=== PATIENT | female | born 1980 | race Caucasian/White ===

== ENCOUNTER 2018-10-18 22:29 | Emergency (ER) | payer BC ==
[2018-10-18 22:37] VITALS: TEMP 98.3
--- NOTE | 2018-10-18 22:56 | ED ---
Chest Pain HPI - General Chief Complaint: Chest Pain Stated Complaint: arm & neck pain, doesn't feel right Time Seen by Provider: 10/18/18 22:56 Source: patient, RN notes reviewed, old records reviewed Mode of arrival: ambulatory Limitations: no limitations - History of Present Illness Initial Comments: This is a 38-year-old female the ER for evaluation of some chest pain chest tightness, tingling that happened earlier in the day is been episodic for a few days now. No history of high blood pressure control diabetes. No recent travel history or sick contacts. A she also has left arm pain left neck pain and dizziness. No prior history of similar complaint no trauma. No fever cough or congestion MD Complaint: chest pain -: days(s) Onset: other (Episodic) Pain Location: substernal, left chest Pain Radiation: LUE Severity: mild Consistency: intermittent Improves With: nothing Worsens With: nothing Treatments Prior to Arrival: none - Related Data Home Medications Medication Instructions Recorded Confirmed Levothyroxine Sodium [Synthroid] 75 mcg PO DAILY 04/12/16 04/12/16 Loratadine [Claritin] 10 mg PO DAILY PRN 04/12/16 04/12/16 Previous Rx's Medication Instructions Recorded Meclizine [Antivert] 12.5 mg PO Q6H #20 tablet 04/12/16 Allergies Allergy/AdvReac Type Severity Reaction Status Date / Time No Known Allergies Allergy Verified 10/18/18 22:37 Review of Systems ROS Statement: Those systems with pertinent positive or pertinent negative responses have been documented in the HPI. ROS Other: All systems not noted in ROS Statement are negative. EKG Findings - EKG Comments: EKG Findings:: EKG shows normal sinus rhythm rate of 66, PA 136, QRS 80, QTC 448 Past Medical History Past Medical History: No Reported History, Thyroid Disorder History of Any Multi-Drug Resistant Organisms: None Reported Past Surgical History: Tonsillectomy Past Psychological History: No Psychological Hx Reported Smoking Status: Never smoker Past Alcohol Use History: Occasional Past Drug Use History: None Reported General Exam Limitations: no limitations General appearance: alert, in no apparent distress Head exam: Present: atraumatic, normocephalic, normal inspection Eye exam: Present: normal appearance, PERRL, EOMI. Absent: scleral icterus, conjunctival injection, periorbital swelling ENT exam: Present: normal exam, mucous membranes moist Neck exam: Present: normal inspection. Absent: tenderness, meningismus, lymphadenopathy Respiratory exam: Present: normal lung sounds bilaterally. Absent: respiratory distress, wheezes, rales, rhonchi, stridor Cardiovascular Exam: Present: regular rate, normal rhythm, normal heart sounds. Absent: systolic murmur, diastolic murmur, rubs, gallop, clicks GI/Abdominal exam: Present: soft, normal bowel sounds. Absent: distended, tenderness, guarding, rebound, rigid Extremities exam: Present: normal inspection, full ROM, normal capillary refill. Absent: tenderness, pedal edema, joint swelling, calf tenderness Back exam: Present: normal inspection Neurological exam: Present: alert, oriented X3, CN II-XII intact Psychiatric exam: Present: normal affect, normal mood Skin exam: Present: warm, dry, intact, normal color. Absent: rash Course Vital Signs 10/18/18 10/19/18 22:33 01:00 Temperature 98.3 F Pulse Rate 70 75 Respiratory 20 18 Rate Blood Pressure 120/80 104/72 O2 Sat by Pulse 100 99 Oximetry - Reevaluation(s) Reevaluation #1: Reviewed Patient is currently without chest pain Chest Pain MDM - MDM 38 female the ER for evaluation of atypical chest pain. Patient is x-rays labwork are normal here in the ER. No recent fevers for heart disease and patient can be discharged home Disposition Clinical Impression: Chest pain, Atypical chest pain Disposition: HOME SELF-CARE Condition: Good Instructions (If sedation given, give patient instructions): Chest Pain (ED) Is patient prescribed a controlled substance at d/c from ED?: No Referrals: Rancho Delong DO [Primary Care Provider] - 1-2 days
[2018-10-18 23:49] LABS: Basophils % (A) 0 %; Eosinophils # (A) 0.2 k/uL (0-0.7); Eosinophils % (A) 2 %; HCT 38.9 % (34.0-46.0); HGB 13.2 gm/dL (11.4-16.0); Lymphocytes # (A) 2.5 k/uL (1.0-4.8); Lymphocytes % (A) 37 %; MCH 29.2 pg (25.0-35.0); MCV 85.9 fL (80.0-100.0); Mean Platelet Volume 7.9; Monocytes # (A) 0.3 k/uL (0-1.0); Monocytes % (A) 4 %; Neutrophils # (A) 3.8 k/uL (1.3-7.7); Neutrophils % (A) 56 %; Platelet Count 198 k/uL (150-450); RBC 4.53 m/uL (3.80-5.40); RDW 12.8 % (11.5-15.5); WBC 6.7 k/uL (3.8-10.6)
[2018-10-18 23:58] LABS: ALT 11 U/L (9-52); AST 15 U/L (14-36); Albumin 4.2 g/dL (3.5-5.0); Alkaline Phosphatase 52 U/L (38-126); Anion Gap 8 mmol/L; Blood Urea Nitrogen 15 mg/dL (7-17); Calcium 9.1 mg/dL (8.4-10.2); Carbon Dioxide 24 mmol/L (22-30); Chloride 105 mmol/L (98-107); Glucose 92 mg/dL (74-99); Lipase 78 U/L (23-300); Magnesium 2.1 mg/dL (1.6-2.3); Potassium 3.9 mmol/L (3.5-5.1); Sodium 137 mmol/L (137-145); Total Bilirubin 0.3 mg/dL (0.2-1.3); Total Protein 6.9 g/dL (6.3-8.2)
[2018-10-19 00:02] LABS: D-Dimer <0.17 mg/L FEU (<0.60); Partial Thromboplastin Time 27.5 sec (22.0-30.0); Prothrombin Time 10.5 sec (9.0-12.0)
--- NOTE | 2018-10-19 00:06 | XR ---
EXAM: XR Chest, 2 Views CLINICAL HISTORY: ITS.REASON XR Reason: Chest Pain TECHNIQUE: Frontal and lateral views of the chest. COMPARISON: None FINDINGS: Hardware: None. Lungs/pleura: Normal. No focal consolidation. No pleural effusion or pneumothorax. Heart/mediastinum: Normal. No cardiomegaly. Soft tissues: Unremarkable. Bones: No acute fracture. Upper abdomen: Normal. IMPRESSION: No acute disease identified.
[2018-10-19 03:20] VITALS: BP 104/72; PULSE 75; RESP 18
== END 2018-10-19 01:00 | disposition home or self-care (01) ==
LOC: EC 22:29
DX: R07.89 Other chest pain (principal); M79.602 Pain in left arm; M54.2 Cervicalgia; R42 Dizziness and giddiness; E07.9 Disorder of thyroid, unspecified; Z79.890 Hormone replacement therapy
CPT/HCPCS: 36415; 71046; 80053; 83690; 83735; 83880; 84484; 85025; 85379; 85610; 85730; 93005; 99285

== ENCOUNTER → 2023-01-17 | Outpatient (CLI) | payer BC ==
--- NOTE | 2023-01-18 13:44 | MM ---
Reason for Exam: Screening (asymptomatic). Baseline mammogram. Patient History: Menarche at age 15. First Full-Term at age 27. Patient has history of breast feeding. Patient used Hormonal Contraceptives for 7 years. Last menstrual period: 01/06/2023 Risk Values: Tyra 5 year model risk: 0.6%. NCI Lifetime model risk: 10.1%. Prior Study Comparison: Patient's first Mammogram. Tissue Density: The breast tissue is heterogeneously dense. This may lower the sensitivity of mammography. Findings: Analyzed By CAD. There is no suspicious group of microcalcifications or new suspicious mass in either breast. Overall Assessment: Negative, BI-RAD 1 Management: Screening Mammogram of both breasts in 1 year. . Patient should continue monthly self-breast exams. A clinical breast exam by your physician is recommended on an annual basis. This exam should not preclude additional follow-up of suspicious palpable abnormalities. Note on Tyra scores and lifetime risk: 1. A Tyra score greater than 3% is considered moderate risk. If this is the case, consider specialist referral to assess eligibility for a risk reducing agent. 2. If overall lifetime risk for the development of breast cancer is 20% or higher, the patient may qualify for future screening with alternating mammogram and breast MRI. Electronically signed and approved by: Luis Zuniga M.D. Radiologis
== END | disposition home or self-care (01) ==
LOC: RADMAMWWP 16:05
PROVIDERS: ATTEND Obstetrics & Gynecology
DX: Z12.31 Encounter for screening mammogram for malignant neoplasm of breast (principal)
CPT/HCPCS: 77063; 77067

== ENCOUNTER → 2024-01-08 | Outpatient (CLI) | payer BC | END | disposition home or self-care (01) | LOC: LABPRL 17:45 | PROVIDERS: ATTEND Family Medicine | CPT/HCPCS: 80053; 80061; 83036; 84439; 84443; 85025 ==

== ENCOUNTER 2024-02-05 08:00 | Day surgery (SDC) | payer BC ==
[2024-02-02 11:43] VITALS: BMI 24.3
[2024-02-05 08:56] VITALS: TEMP 98
[2024-02-05] MEDS: IV FLUID CONTINUATION 1,000 ML IV ONE (09:02)
[2024-02-05] MEDS: LACTATED RINGERS 1,000 ML IV SCH (09:09)
[2024-02-05] MEDS ORDERED: PROPOFOL 10 MG/ML 20 ML VIAL IV ONE (09:28)
[2024-02-05] MEDS ORDERED: LIDOCAINE 1% INJ 10MG/ML (20 ML MDV) ONE (09:28)
[2024-02-05 10:03] VITALS: RESP 16
[2024-02-05 10:15] VITALS: BP 104/70; PULSE 55
--- NOTE | 2024-02-05 15:37 | P.OP ---
Date of Procedure: 02/05/24 Preoperative Diagnosis: Screening Colonoscopy Postoperative Diagnosis: Normal Colon Procedure(s) Performed: Colonoscopy Anesthesia: other (Sedation) Surgeon: Teo Coreas Pathology: none sent Condition: stable Disposition: PACU Indications for Procedure: This is a 43 year old female that presents for screening colonoscopy. She denies hematochezia, melena, IBD, and family history of Colon Cancer. Description of Procedure: A physical exam was performed. Informed consent was obtained from the patient after explaining all of the risks (perforation, bleeding, infection and adverse effects to the medication), benefits and alternatives to the procedure which the patient appeared to understand and so stated. The patient was connected to the monitoring devices and placed in the left lateral position. Continuous oxygen was provided with a nasal cannula and IV medicine administered through an indwelling cannula. After adequate conscious sedation was achieved, a digital exam was performed which did not reveal any hemorrhoids and the colonoscope introduced into the rectum and advanced under direct visualization to the terminal ileum. The terminal ileum was identified by visual landmarks. The scope was subsequently removed slowly while carefully examining the color, texture, anatomy and integrity of the mucosa on the way out. There were no polyps, masses, or diverticuli noted. In the rectum, the scope was retroflexed to evaluate for internal hemorrhoids and anorectal pathology. There were no internal hemorrhoids appreciated. This concluded the procedure. The patient was subsequently transferred to the recovery area in satisfactory condition Recommendations: 1. Repeat Colonoscopy in 10 years
== END 2024-02-05 10:29 | disposition home or self-care (01) ==
LOC: ORWHC2ENDO 08:00
PROVIDERS: ATTEND Surgery
DX: Z12.11 Encounter for screening for malignant neoplasm of colon (principal); E03.9 Hypothyroidism, unspecified; E28.2 Polycystic ovarian syndrome; Z79.890 Hormone replacement therapy
CPT/HCPCS: 45378; 81025

== ENCOUNTER → 2024-05-02 | Outpatient (CLI) | payer BC ==
--- NOTE | 2024-05-06 10:54 | MM ---
Reason for Exam: Screening (asymptomatic). Last mammogram was performed 1 year(s) and 4 month(s) ago. Patient History: Menarche at age 15. First Full-Term at age 27. Premenopausal. Patient has history of breast feeding. Patient used Hormonal Contraceptives for 7 years. Last menstrual period: 04/15/2024 Risk Values: Tyra 5 year model risk: 0.7%. NCI Lifetime model risk: 10.0%. Prior Study Comparison: 01/17/2023 Bilateral MG 3D screening mammo w/cad, [facility]. Tissue Density: The breasts are heterogeneously dense, which may obscure small masses. Findings: Analyzed By CAD. Right breast: There is no suspicious group of microcalcifications or new suspicious mass. Left breast: There is no suspicious group of microcalcifications or new suspicious mass. Overall Assessment: Negative, BI-RAD 1 Management: Screening Mammogram of both breasts in [address] [facility] will attempt to contact patient to return for supplemental views and ultrasound if indicated. Patient should continue monthly self-breast exams. A clinical breast exam by your physician is recommended on an annual basis. This exam should not preclude additional follow-up of suspicious palpable abnormalities. Note on Tyra scores and lifetime risk: 1. A Tyra score greater than 3% is considered moderate risk. If this is the case, consider specialist referral to assess eligibility for a risk reducing agent. 2. If overall lifetime risk for the development of breast cancer is 20% or higher, the patient may qualify for future screening with alternating mammogram and breast MRI. [facility], , 05/06/2024 10:51 AM. Electronically signed and approved by: Valente Petersen DO
== END | disposition home or self-care (01) ==
LOC: RADMAMWWP 15:12
PROVIDERS: ATTEND Obstetrics & Gynecology
DX: Z12.31 Encounter for screening mammogram for malignant neoplasm of breast (principal); R92.333 Mammographic heterogeneous density, bilateral breasts; Z92.0 Personal history of contraception
CPT/HCPCS: 77063; 77067